=== PATIENT | female | born 1960 | race Two or more races ===

== ENCOUNTER 2018-04-22 08:37 | Emergency (ER) | payer SELFPAY ==
[~2018-04-22] VITALS: Ht 172.7 cm; Wt 52.6 kg
[2018-04-22 08:43] VITALS: Ht 172.7 cm; Wt 52.6 kg
[2018-04-22 10:10] LABS: PLATELET COUNT 335 x10^3mcL (130-400); RED CELL DISTRIBUTION WIDTH 13.6 % (11.5-14.5)
[2018-04-22 10:20] LABS: UA SPECIFIC GRAVITY <=1.005 (1.005-1.035); microscopic required? YES; urine erythrocyte NEGATIVE (NEGATIVE)
[2018-04-22 10:20] LABS: CARBON DIOXIDE 27.8 mmol/L (21-32); CHLORIDE SERUM 107 mmol/L (98-107); CREATININE SERUM 0.7 mg/dL (0.6-1.0); GFR1 > 60 mL/min; GLUCOSE SERUM 102 mg/dL (74-106); POTASSIUM SERUM 3.5 mmol/L (3.5-5.1); SODIUM SERUM 141 mmol/L (136-145)
[2018-04-22 10:24] LABS: ALBUMIN 3.6 g/dL (3.4-5.0); ALKALINE PHOSPHATASE 87 U/L (46-116); ALT/SGPT 34 U/L (14-59); AMYLASE 75 U/L (25-115); AST/SGOT 23 U/L (15-37); CHOLESTEROL 187 mg/dL (<200); HDL CHOLESTEROL 47 mg/dL (40-60); LIPASE 305 IU/L (73-393); TOTAL PROTEIN, SERUM 7.4 g/dL (6.4-8.2)
[2018-04-22 10:28] LABS: AMPHETAMINE QUAL UR NONE DETECTED (See below)
[2018-04-22 12:05] VITALS: BP 119/74
== END 2018-04-22 12:30 | disposition home or self-care (01) ==
LOC: ED 08:37
PROVIDERS: Emergency Medicine
DX: R07.89 Other chest pain (principal); I10 Essential (primary) hypertension; E78.00 Pure hypercholesterolemia, unspecified; F31.9 Bipolar disorder, unspecified; L80 Vitiligo; Z88.0 Allergy status to penicillin; Z88.2 Allergy status to sulfonamides; Z88.6 Allergy status to analgesic agent
CPT/HCPCS: 36415; 83880; G0480; Q0092